=== PATIENT | female | born 1985 | race African-American/Black ===

== ENCOUNTER 2019-03-29 11:34 | Emergency (ER) | payer MEDICAID, OTHER ==
[~2019-03-29] VITALS: Ht 61 cm; Wt 127.0 kg
[2019-03-29 11:41] VITALS: BP 131/86
--- NOTE | 2019-03-29 12:39 | NUR ---
ED Nurse Note: Pt. AAOx4. ambulatory. pt. has abd pain X 2 days ago. Pt. was recently diagnosed with UTI. Per pt. has not judi getting any relief from her precribed meds. Pt. c/o of L shoulder pain and back pain. Pt. stated she has bulging disc on T5
[2019-03-29 12:46] LABS: APPEARANCE,URINE SLIGHTLY CLOUDY; BASOPHILS % (AUTO) 0.7 % (0.0-2.0); BILIRUBIN, URINE NEGATIVE (NEGATIVE); EOSINOPHILS % (AUTO) 0.4 % (0.0-3.0); GLUCOSE, URINE (UA) NEGATIVE (NEGATIVE); HEMATOCRIT 44.4 % (37.0-47.0); HEMOGLOBIN 14.5 G/DL (12.0-16.0); KETONES,URINE NEGATIVE (NEGATIVE); LEUKOCYTE ESTERASE ,URINE 3+ (NEGATIVE); LYMPHOCYTES % (AUTO) 21.9 % (20.0-45.0); MEAN CORPUSCULAR VOLUME 95 FL (80-99); MONOCYTES % (AUTO) 6.1 % (1.0-10.0); NITRITE,URINE NEGATIVE (NEGATIVE); PH,URINE 7 (4.5-8.0); PLATELET COUNT 240 K/UL (150-450); PROTEIN,URINE 1+ (NEGATIVE); RED CELL DISTRIBUTION WIDTH 12.5 % (11.6-14.8); UROBILINOGEN,URINE 1 MG/DL (0.0-1.0); WHITE BLOOD COUNT 11.4 K/UL (4.8-10.8)
[2019-03-29 12:55] LABS: COLOR,URINE YELLOW
[2019-03-29 12:59] LABS: ANION GAP 6 mmol/L (5-15); BLOOD UREA NITROGEN 12 mg/dL (7-18); CALCIUM 9.1 MG/DL (8.5-10.1); CARBON DIOXIDE 28 MMOL/L (21-32); CHLORIDE 106 MMOL/L (98-107); CREATININE 0.7 MG/DL (0.55-1.30); SODIUM 140 MMOL/L (136-145)
[2019-03-29 13:06] LABS: ALANINE AMINOTRANSFERASE 16 U/L (12-78); ALBUMIN 3.4 G/DL (3.4-5.0); ALBUMIN/GLOBULIN RATIO 0.8 (1.0-2.7); ALKALINE PHOSPHATASE 62 U/L (46-116); ASPARTATE AMINO TRANSFERASE 14 U/L (15-37); BILIRUBIN,TOTAL 0.5 MG/DL (0.2-1.0)
[2019-03-29] MEDS: DiphenhydrAMINE 50mg/ml Inj IVP ONE (13:48)
[2019-03-29] MEDS: cefTRIAXone 1 GM in NS 55 ML IVPB ONE (13:48)
[2019-03-29] MEDS: Morphine Sulfate 4mg/ml Inj (IV USE ONLY) IVP ONE (13:48)
[2019-03-29] MEDS ORDERED: FLUCONAZOLE150 MG ORAL (14:20)
[2019-03-29] MEDS ORDERED: PHENAZOPYRIDIN100 MG ORAL (14:20)
[2019-03-29] MEDS ORDERED: CEPHALEXIN500 MG ORAL (14:20)
[2019-03-29 14:30] VITALS: BP 142/69
--- NOTE | 2019-03-29 14:30 | NUR ---
ER DISCHARGE NOTE: Patient is cleared to be discharged per ERMD, pt is aox4, on room air, with stable vital signs. pt was given dc and prescription instructions, pt was able to verbalize understanding, pt id band removed. pt is able to ambulate with steady gait. pt took all belongings.
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
== END 2019-03-29 14:31 | disposition home or self-care (01) ==
LOC: EMR 13:50
DX: N39.0 Urinary tract infection, site not specified (principal); G89.29 Other chronic pain
CPT/HCPCS: 36415; 80053; 81003; 81025; 83690; 85025; 87086; 96365; 96375; 99284; J0696; J1200; J2270

== ENCOUNTER 2019-04-01 22:01 | Emergency (ER) | payer MEDICAID ==
[~2019-04-01] VITALS: Ht 188 cm; Wt 127.0 kg
[~2019-04-01 22:01] MED LIST: CEPHALEXIN500 MG ORAL; FLUCONAZOLE150 MG ORAL; PHENAZOPYRIDIN100 MG ORAL
--- NOTE | 2019-04-01 22:20 | NUR ---
ED Nurse Note: Recieved pt from home, here with c/o vaginal itching and redness and burning now for past 2 weks, pt has been sen by many providers and being treated for uti, also seen another provider and being trated with flagyl, then seen another provider whom prescribed pyridium, pt is very anxious, has completed no treatments, starts antibiotics then does not take them all, pt is very anxious and quotes internet and thinks wed are not doing what should be done, urine sample collected and has color as if pyridium is still being used, pt gowned, will resume care as ordered and continue to closely monitor.
--- NOTE | 2019-04-01 23:05 | NUR ---
ED Nurse Note: Chapgera santiago with pelvic exam, pt tolerated well, noted with discharge, mild redness noted around vaginal area, pt given linen to clean when completd, no increased distress noted.
[2019-04-01 23:07] LABS: APPEARANCE,URINE CLOUDY; BILIRUBIN, URINE NEGATIVE (NEGATIVE); GLUCOSE, URINE (UA) NEGATIVE (NEGATIVE); KETONES,URINE NEGATIVE (NEGATIVE); LEUKOCYTE ESTERASE ,URINE 3+ (NEGATIVE); NITRITE,URINE POSITIVE (NEGATIVE); PH,URINE 5 (4.5-8.0); PROTEIN,URINE 1+ (NEGATIVE); UROBILINOGEN,URINE 1 MG/DL (0.0-1.0)
[2019-04-01] MEDS ORDERED: METROGEL-VAGINA70 G1 VAGIN (23:08)
[2019-04-01 23:09] LABS: COLOR,URINE ORANGE
[2019-04-01 23:15] VITALS: BP 119/81
--- NOTE | 2019-04-01 23:24 | Emergency Room Report ---
History of Present Illness General Chief Complaint: Female Urogenital Problems Source: Patient Present Illness HPI Patient presents with complaints of vaginal burning sensation Reports that she was seen initially by her urgent care about 2 weeks ago and put on Augmentin Also Pyridium Patient symptoms had persisted and therefore she presented here several days ago Patient's medication was changed to Keflex extensive blood work was done in this visit patient reports that she has continued vaginal discomfort and burning sensation the sensation also is combined with pain with urination Denies any fevers or chills denies any rash Patient reports that she is having a difficult time getting her gynecology Appointment patient was previously sexually active however denies any Vaginal discharge or foul smell Allergies: Coded Allergies: ACETAMINOPHEN (Verified Allergy, Unknown, 03/29/19) CODEINE (Verified Allergy, Unknown, 03/29/19) HYDROCODONE (Verified Allergy, Unknown, 03/29/19) OXYCODONE (Verified Allergy, Unknown, 03/29/19) TRAMADOL (Verified Allergy, Unknown, 03/29/19) Patient History Past Medical History: see triage record Pertinent Family History: none Last Menstrual Period: 03/11/19 Now: No Reviewed Nursing Documentation: PMH: Agreed; PSxH: Agreed Nursing Documentation-PMH Past Medical History: No History, Except For Review of Systems All Other Systems: negative except mentioned in HPI Physical Exam Vital Signs Date Time Temp Pulse Resp B/P (MAP) Pulse Ox O2 Delivery O2 Flow Rate FiO2 04/01/19 22:09 98.2 94 14 125/86 (99) 98 Room Air Sp02 EP Interpretation: reviewed, normal General Appearance: well appearing, no apparent distress Head: normocephalic, atraumatic Eyes: bilateral eye PERRL, bilateral eye EOMI ENT: hearing grossly normal, normal pharynx, TMs + canals normal, uvula midline Neck: full range of motion, supple, no meningismus, no bony tend Respiratory: lungs clear, normal breath sounds, no rhonchi, no respiratory distress, no retraction, no accessory muscle use Cardiovascular #1: normal peripheral pulses, regular rate, rhythm, no edema, no gallop, no JVD, no murmur Gastrointestinal: normal bowel sounds, non tender, soft, no mass, no organomegaly, non-distended, no guarding, no hernia, no pulsatile mass, no rebound Genitourinary: no CVA tenderness, other - And reveals mildly irritated vaginal vault there is some whitish discharge Musculoskeletal: normal inspection Neurologic: oriented x3, responsive, mental health consultant III-XII nml as tested, motor strength/ tone normal, sensory intact Psychiatric: mood/affect normal Skin: no rash Lymphatic: normal inspection, no adenopathy Medical Decision Making Diagnostic Impression: Primary Impression: bacterial vaginitis ER Course With the patient's history and examination, multiple differentials considered, including but not limited to , ectopic , ovarian torsion, gastritis, cholecystitis, PID, pancreatitis, appendicitis Patient has had recent antibiotic coverage with Augmentin and Keflex she was given Diflucan on her last visit Given the exam and clinical history and findings patient does appear to have Findings consistent with bacterial vaginosis I did discuss with her the importance of outpatient gynecology follow-up for further culturing and more extensive pelvic examination as this is performed without any cultures Patient understands this and will have close outpatient follow-up Labs Test 04/01/19 22:50 Urine Color [place] Urine Appearance Cloudy Urine pH 5 (4.5-8.0) Urine Specific [place] 1.020 (1.005-1.035) Urine Protein 1+ (NEGATIVE) Urine Glucose (UA) Negative (NEGATIVE) Urine Ketones Negative (NEGATIVE) Urine Blood 1+ (NEGATIVE) Urine Nitrite Positive (NEGATIVE) Urine Bilirubin Negative (NEGATIVE) Urine Urobilinogen 1 MG/DL (0.0-1.0) Urine Leukocyte Esterase 3+ (NEGATIVE) Urine RBC 5-10 /HPF (0 - 2) Urine WBC Tntc /HPF (0 - 2) Urine Squamous Epithelial Cells Many /LPF (NONE/OCC) Urine Bacteria Many /HPF (NONE) Last Vital Signs Date Time Temp Pulse Resp B/P (MAP) Pulse Ox O2 Delivery O2 Flow Rate FiO2 04/01/19 22:09 98.2 94 14 125/86 (99) 98 Room Air Status: improved Disposition: HOME, SELF-CARE Condition: Stable Scripts Metronidazole* (METROGEL-VAGINAL*) 70 Gm Gel.w.appl 1 APPL VAGIN EVERY 12 HOURS, #70 GM Prov: Roro Becker DO 04/01/19 Referrals: [facility],REFERRING (PCP) Patient Instructions: Bacterial Vaginosis, [id number] Additional Instructions: Patient is provided with the discharge instructions notified to follow up with primary doctor in the next 2-3 days otherwise return to the er with any worsening symptoms. Please note that this report is being documented using DRAGON technology. This can lead to erroneous entry secondary to incorrect interpretation by the dictating instrument. Roro Becker DO Apr 01, 2019 23:24
[2019-04-01 23:25] VITALS: BP 125/86
--- NOTE | 2019-04-01 23:25 | NUR ---
ER DISCHARGE NOTE: Patient is cleared to be discharged per ERMD, pt is aox4, on room air, with stable vital signs. pt was given dc and prescription instructions, pt was able to verbalize understanding, pt id band removed without complications. pt is able to ambulate with steady gait. pt took all belongings.
== END 2019-04-01 23:25 | disposition home or self-care (01) ==
LOC: EMR 22:44
DX: N76.0 Acute vaginitis (principal); Z88.6 Allergy status to analgesic agent
CPT/HCPCS: 81003; 87086; 99283